=== PATIENT | male | born 1970 | race Caucasian/White ===

== ENCOUNTER 2019-01-15 21:36 | Inpatient (IN) | payer BC ==
[~2019-01-15] VITALS: Ht 177.8 cm; Wt 131.5 kg
[2019-01-15 21:42] VITALS: BP 171/102
[2019-01-15] MEDS ORDERED: BLOOD PRESSURE MED (21:45)
[2019-01-15] MEDS ORDERED: HYDROCHLOROTH12.5 M1 PO (21:47)
[2019-01-15] MEDS ORDERED: LISINOPRIL10 MG PO (21:47)
[2019-01-15 22:08] LABS: ABSOLUTE BASOPHILS 0.1 thou/uL (0.0-0.2); ABSOLUTE EOSINOPHILS 0.1 thou/uL (0.0-0.7); ABSOLUTE LYMPHOCYTES 1.7 thou/uL (0.8-5.3); ABSOLUTE MONOCYTES 0.6 thou/uL (0.0-1.2); ABSOLUTE NEUTROPHILS 4.5 thou/uL (1.6-8.1); BASOPHILS 1.9 %; EOSINOPHILS 1.1 %; HEMATOCRIT 43.3 % (42.0-52.0); HEMOGLOBIN 14.9 gm/dL (14.0-18.0); LYMPHOCYTES 24.5 %; MCH 31.1 pg (26.0-34.0); MCHC 34.4 g/dL (28.0-37.0); MCV 90.7 fL (80.0-100.0); MONOCYTES 8.4 %; MPV 7.1 fl. (7.2-11.1); NUCLEATED RBCS 0 /100WBC; PLATELET COUNT* 279 thou/uL (150-400); POLYS 64.1 %; RBC 4.78 mil/uL (4.50-6.00); RDW-CV 13.6 % (10.5-14.5); WBC 7.1 thou/uL (4.0-11.0)
[2019-01-15 22:16] LABS: ANION GAP 9 mmol/L (7-16); BUN 14 mg/dL (7-18); CALCIUM 8.7 mg/dL (8.5-10.1); CHLORIDE 106 mmol/L (98-107); CO2 28 mmol/L (21-32); GLUCOSE 113 mg/dL (70-99); POTASSIUM 3.9 mmol/L (3.5-5.1); SODIUM 143 mmol/L (136-145)
[2019-01-15 22:20] LABS: APTT 28.9 Seconds (25.0-31.3)
[2019-01-15 22:31] LABS: ALBUMIN 3.5 g/dL (3.4-5.0); ALKALINE PHOSPHATASE 71 U/L (46-116); CK-MB MASS 1.3 ng/mL (<0.5-3.6); LIPASE 102 U/L (73-393); MAGNESIUM 2.1 mg/dL (1.8-2.4); NT-PRO BRAIN NAT PEPTIDE 24 pg/mL (<300); SGOT 27 U/L (15-37); SGPT 84 U/L (30-65); TOTAL BILIRUBIN 0.3 mg/dL (<0.1-1.0); TOTAL PROTEIN 7.4 g/dL (6.4-8.2); TROPONIN-I LEVEL <0.06 ng/mL (<0.06)
[2019-01-16] VITALS (7 sets, daily range): BP systolic 125–139; BP diastolic 68–88
--- NOTE | 2019-01-16 07:18 | NUR ---
PT TO FLOOR APPOX 0030 ASSESSMENT COMPLETE, NEEDS MET. SEE MAR. SEE CHARTING. HOURLY ROUNDING FOR SAFETY.
--- NOTE | 2019-01-16 09:00 | NUR ---
INITAL ASSESSMENT COMPLETED CHARTED. TRACING SR ON MONITOR. VSS. PT YENY PAIN, CP, SOA, N/V/D. PT IS CURRENTLY NPO. NO NEW COMCERNS AT THIS TIME. HOURLY ROUNDING IN PLACE. CLWR.
--- NOTE | 2019-01-16 10:59 | NUR ---
Pt is A&O. Resides at home with his . Active and independent. No DME. No hx of HH or SNF. Goal is home at in. Following.
--- NOTE | 2019-01-16 11:43 | EKG ---
[place] [address] ELECTROCARDIOGRAM REPORT Name: DEMARCUS VARELA Room: [address] ADM IN .R.#: [id number] Admission: 01/15/19 Attend Phys: Zahraa Ellis MD Discharge: Date of : 68 Report #: [id number] THIS REPORT FOR: //name// [facility] ED Test Date: 2019-01-15 Test Time: 21:39:53 Pat Name: DEMARCUS VARELA Department: Room: [facility] Gender: M Harness Inspector: : 1970 Requested By: Dawood Rush Order Number: [id number] MD: John Avila Measurements Intervals [place] Rate: 85 P: 46 [place]: 146 QRS: 79 QRSD: 109 T: 60 QT: 369 QTc: 439 Interpretive Statements Sinus rhythm No previous ECG available for comparison Electronically Signed On 01-16-2019 11:43:00 CDT by John Avila [email or web address] <ELECTRONICALLY SIGNED> By: John vAila MD, [facility] 01/16/19 1143 2139 2139 John Avila MD, FACC /EPI
--- NOTE | 2019-01-16 19:24 | EXE ---
[place] [address] STRESS ECHOCARDIOGRAM Name: DEMARCUS VARELA Room: [address] IN [facility]#: [id number] Admission: 01/15/19 Attend Phys: Zahraa Ellis, Discharge: Date of : 68 Date of Service: 01/16/19 1924 Report #: [id number] THIS REPORT FOR: //name// APPROVED REPORT Study performed: 01/16/2019 16:25:50 Exam: Stress Echocardiogram Indication: Chest pain Patient Location: In-Patient Stress Nurse: Sandi Mcintyre RN Room #: [facility] Supervising Physician: John Avila MD Status: routine Ht: 5 ft 10 in HR: 75 bpm BP: 134/85 mmHg Rhythm: NSR Medical History Allergies: No known drug allergies Cardiac Risk Factors: Smoking, FHX of CAD, HTN Procedure The patient underwent an Exercise Stress Test using the Anatoliy Protocol. Blood pressure, heart rate, and EKG were monitored. An Echocardiogram was performed by roof service technician in four stages in quad fashion. At peak stress, four selected images were obtained and placed side by side with resting images for comparison. Echo Enhancing Agent Indication: Endocardial border delineation Agent(s) / Amount(s) Used: Optison 8 cc Stress Test Details Stress Test: Exercise stress testing was performed using a Anatoliy protocol. HR Resting HR: 75 bpm Max Heart Rate (APMHR): 171 bpm Max HR Achieved: 162 bpm Target HR (85% APMHR): 145 bpm % of APMHR: 94 Recovery HR: 89 bpm HR response to stress: Normal [place] [address] STRESS ECHOCARDIOGRAM Name: DEMARCUS VARELA Room: [address]#: [id number] Admission: 01/15/19 Attend Phys: Zahraa Ellis, Discharge: Date of : 68 Date of Service: 01/16/19 1924 Report #: [id number] Resting BP: 134/85 mmHg Max BP: 242/111 mmHg Recovery BP: 155/92 mmHg BP response to stress: Abnormal hypertensive response to stress. ECG Resting ECG: Sinus Rhythm Stress ECG: Sinus Tachycardia ST Change: Normal Maximum ST Deviation: 0 mm Arrhythmia: None Recovery ECG: Sinus Rhythm Recovery ST Change: Normal Recovery ST Deviation: 0 mm Recovery Arrhythmia: None Clinical Reason for Termination: Maximal effort Exercise duration: 6 min 50 sec Highest Stage Achieved: Stage 3: 3.4 mph at 14% grade. Exercise capacity: 8.33 METs Pre-Stress Echo The resting Echocardiogram showed normal left ventricular contractility with an estimated Ejection Fraction of about 55-60%. Post-Stress Echo The stress Echocardiogram showed normal left ventricular contractility with an estimated Ejection Fraction of about 65-70%. Conclusion Clinical Response: Non-ischemic Exercise Capacity: Average Stress ECG Response: Non-ischemic Stress Echo Images: Non-ischemic low risk stress echo for predicting future cardiac events Other Information Technically limited study [place] [address] STRESS ECHOCARDIOGRAM Name: DEMARCUS VARELA Room: [address]#: [id number] Admission: 01/15/19 Attend Phys: Zahraa Ellis, Discharge: Date of : 68 Date of Service: 01/16/191923 Report #: [id number] <Conclusion> low risk stress echo for predicting future cardiac events <ELECTRONICALLY SIGNED> By: John Avila MD, FACC 01/16/191923 23 23 John Avila MD, FACC /INF
--- NOTE | 2019-01-16 19:42 | NUR ---
PATIENT UNDERWENT STRESS ECHO, RESULTS CAME NEGATIVE. DR ANDRADE OKAY TO DISCHARGE THE PATIENT. VSS.
--- NOTE | 2019-01-16 22:53 | NUR ---
CARDIOLOGY CAME TO FLOOR AT 1930 AND SAID IT WAS OK TO DISCHARGE HOME RELATED TO ECHO RESULTS. PHYSICIAN NOTIFIED DISCHARGE ORDERS RECIEVED AND PAPERWORK COMPLETED BY NURSING. DISCHARGE ORDERS WENT OVER [facility] PT AND ALL QUESTIONS ANSWERED AT THIS TIME. ALL BELONGINGS GATHERED AND GIVEN TO PT. PT ESCORTED BY NURSING TO PERSONAL VEHICLE AT 2119.
--- NOTE | 2019-01-18 16:40 | CON ---
[facility] [address] [place] [address] CONSULTATION Name: DEMARCUS VARELA Room: [address] IN .R.#: [id number] Admission: 01/15/19 Attend Phys: Zahraa Ellis MD Discharge: 01/16/19 Date of : 68 Report #: [id number] THIS REPORT FOR: //name// CC: Rafita Deleon DO FAM physician/PCP Zahraa Ellis CARDIOLOGY CONSULTATION PRIMARY CARE PHYSICIAN: Rafita Deleon DO. HISTORY OF PRESENT ILLNESS: The patient is a 48-year-old white male who I was asked to see in the hospital today after he complained of chest pain. The patient has no previous history of heart disease. He has had no previous cardiac evaluation. He was doing well until he was at work 2 days ago, when he felt a discomfort in his chest. There was no radiation of the pain. He did feel somewhat diaphoretic, but denied any shortness of breath. That lasted for about 3 hours and resolved. He also had an episode yesterday; he felt some soreness in his chest that lasted for about 2 hours. He went out to dinner last night. After dinner, he drove himself to the Emergency Room and was admitted. He denied any associated cough, fever or leg pain. He has had no bleeding. He denied any trauma to his chest. He denies exertional dyspnea, palpitations or syncope. PAST MEDICAL HISTORY: He has had a hip surgery, LASIK therapy on his eyes. A week ago, he was told he had high blood pressure and started on lisinopril. He has no history of diabetes or hyperlipidemia. ALLERGIES: He has no known drug allergies. FAMILY HISTORY: Negative for heart disease. SOCIAL HISTORY: He is . He and his live in [place]. He works for the railroad. No smoking. Has occasional alcohol. REVIEW OF SYSTEMS: He has had no history of stroke, asthma, peptic ulcer disease, liver disease, kidney disease, cancer, psychiatric illness or chronic skin condition. PHYSICAL EXAMINATION: GENERAL: Revealed a middle-aged male, lying in bed. He appeared in no distress. VITAL SIGNS: He had a blood pressure of 130/80, pulse 70. He was afebrile. HEENT: He was anicteric. Conjunctivae were pink. Mucous membranes moist. NECK: Neck veins did not appear distended. No carotid bruits. Neck was supple. CHEST: [place] [address] CONSULTATION Name: NICHOLEDEMARCUS TEIXEIRA Alee Room: [address]#: [id number] Admission: 01/15/19 Attend Phys: Zahraa Ellis MD Discharge: 01/16/19 Date of : 68 Report #: [id number] CARDIAC EXAMINATION: Regular rate and rhythm. No murmur or rub. ABDOMEN: Soft. EXTREMITIES: Had no edema. Posterior pulse 2+ bilaterally. SKIN: Warm, dry. NEUROLOGICAL EXAMINATION: Nonfocal. LYMPH EXAMINATION: No adenopathy. MUSCULOSKELETAL EXAMINATION: No joint effusion. DIAGNOSTIC DATA: His ECG on admission last night showed a normal sinus rhythm. There were nonspecific ST-segment changes noted. His workup in the Emergency Room, he had a portable chest x-ray yesterday that showed some atelectasis, otherwise clear lung nicole. LABORATORY DATA: Sodium 143, creatinine 1.0 and glucose 113. Liver function studies were normal. Troponin 0.06. BNP 24. White blood cell count 7.1 and hemoglobin 14.9. IMPRESSION AND RECOMMENDATIONS: 1. Chest pain. Atypical for angina. Minimal risk factors. Because of his abnormal ECG, recommend a stress echocardiogram. 2. Hypertension. Recently started on LUISA inhibitor. 3. Tobacco abuse. <ELECTRONICALLY SIGNED> By: John Avila MD, FACC 01/18/19 1640 1259 2334Dtami Avila MD, FACC /nt
== END 2019-01-16 22:03 | disposition home or self-care (01) | DRG 311 ==
LOC: M.ERS 21:36 → M.2W 23:15 → M.TBA-ER 23:15 → M.2W 01-16 00:45
PROVIDERS: Family Medicine; ADMIT Internal Medicine
DX: I20.9 Angina pectoris, unspecified (principal); Z68.41 Body mass index [BMI] 40.0-44.9, adult; I10 Essential (primary) hypertension; F17.210 Nicotine dependence, cigarettes, uncomplicated; E66.01 Morbid (severe) obesity due to excess calories

== ENCOUNTER 2020-12-17 15:43 | Observation (INO) | payer BC ==
[~2020-12-17] VITALS: Ht 177.8 cm; Wt 122.8 kg
[~2020-12-17 15:43] MED LIST: BLOOD PRESSURE MED; HYDROCHLOROTH12.5 M1 PO; LISINOPRIL10 MG PO
[2020-12-17 15:50] VITALS: BP 207/112
[2020-12-17] MEDS ORDERED: WELLBUTRIN 75 M75 M1 PO (16:06)
[2020-12-17 16:17] LABS: ABSOLUTE BASOPHILS 0.1 thou/uL (0.0-0.2); ABSOLUTE EOSINOPHILS 0.2 thou/uL (0.0-0.7); ABSOLUTE LYMPHOCYTES 1.5 thou/uL (0.8-5.3); ABSOLUTE MONOCYTES 1.1 thou/uL (0.0-1.2); ABSOLUTE NEUTROPHILS 8.9 thou/uL (1.6-8.1); BASOPHILS 0.5 %; EOSINOPHILS 1.4 %; HEMATOCRIT 46.4 % (42.0-52.0); HEMOGLOBIN 15.8 gm/dL (14.0-18.0); LYMPHOCYTES 12.6 %; MCH 30.9 pg (26.0-34.0); MCHC 34.1 g/dL (28.0-37.0); MCV 90.6 fL (80.0-100.0); MONOCYTES 9.4 %; MPV 7.2 fl. (7.2-11.1); NUCLEATED RBCS 0 /100WBC; PLATELET COUNT* 303 thou/uL (150-400); POLYS 76.1 %; RBC 5.12 mil/uL (4.50-6.00); RDW-CV 13.8 % (10.5-14.5); WBC 11.7 thou/uL (4.0-11.0)
[2020-12-17 16:29] LABS: APTT 26.1 Seconds (25.0-31.3); INR 0.9; PROTIME 9.8 Seconds (9.20-11.50)
[2020-12-17 16:32] LABS: CALCIUM 8.5 mg/dL (8.5-10.1); CREATININE 0.9 mg/dL (0.6-1.3)
[2020-12-17 16:40] LABS: ALBUMIN 3.6 g/dL (3.4-5.0); MAGNESIUM 2.4 mg/dL (1.8-2.4); TOTAL BILIRUBIN 0.5 mg/dL (<0.1-1.0); TOTAL PROTEIN 7.9 g/dL (6.4-8.2)
[2020-12-17 19:57] VITALS: BP 146/97
[2020-12-17 21:00] VITALS: BP 158/93
[2020-12-18] VITALS: BP 156/94
[2020-12-18 04:00] VITALS: BP 141/88; BP 184/100
[2020-12-18 06:16] LABS: HEMATOCRIT 43.9 % (42.0-52.0); HEMOGLOBIN 15.1 gm/dL (14.0-18.0); MCH 31.2 pg (26.0-34.0); MCHC 34.5 g/dL (28.0-37.0); MCV 90.4 fL (80.0-100.0); MPV 7.6 fl. (7.2-11.1); RBC 4.86 mil/uL (4.50-6.00); RDW-CV 13.3 % (10.5-14.5); WBC 9.9 thou/uL (4.0-11.0)
[2020-12-18 06:24] LABS: CALCIUM 8.9 mg/dL (8.5-10.1); CREATININE 0.8 mg/dL (0.6-1.3); POTASSIUM 3.8 mmol/L (3.5-5.1)
[2020-12-18 08:34] VITALS: BP 166/93
--- NOTE | 2020-12-18 11:07 | EKG ---
[place] [address] ELECTROCARDIOGRAM REPORT Name: DEMARCUS VARELA Room: [address] M.R.#: [id number] Admission: 12/17/20 Attend Phys: Kentrell Packer Discharge: Date of : 68 Date of Service: 12/17/20 1548 Report #: [id number] THIS REPORT FOR: //name// [facility] ED Test Date: 2020-12-17 Test Time: 15:48:27 Pat Name: DEMARCUS VARELA Department: Room: [facility] Gender: M Classification And Treatment Director: JORDEN : 1970 Requested By: Dawood Rush Order Number: [id number] MD: John Avila Measurements Intervals [place] Rate: 96 P: 53 [place]: 138 QRS: 72 QRSD: 96 T: 53 QT: 350 QTc: 443 Interpretive Statements Sinus rhythm Baseline wander in lead(s) V3 Compared to ECG 01/15/2019 21:39:53 No significant changes Electronically Signed On 12-18-2020 11:07:45 CDT by John Avila [email or web address] <ELECTRONICALLY SIGNED> By: John Avila MD, FAC 12/18/20 1107 1548 1548 John Avila MD, [facility] /EPI
[2020-12-18 12:08] VITALS: BP 130/88
[2020-12-18 16:34] VITALS: BP 153/93
[2020-12-18 20:00] VITALS: BP 151/86
[2020-12-19] VITALS: BP 155/94
[2020-12-19 04:00] VITALS: BP 150/87
[2020-12-19 04:17] LABS: HEMOGLOBIN 14.7 gm/dL (14.0-18.0); MCH 31.1 pg (26.0-34.0); MCHC 34.2 g/dL (28.0-37.0); MCV 90.8 fL (80.0-100.0); MPV 7.2 fl. (7.2-11.1); RBC 4.74 mil/uL (4.50-6.00); RDW-CV 13.6 % (10.5-14.5); WBC 8.2 thou/uL (4.0-11.0)
[2020-12-19 04:36] LABS: CALCIUM 8.9 mg/dL (8.5-10.1); CREATININE 0.8 mg/dL (0.6-1.3)
[2020-12-19 07:53] VITALS: BP 141/90
[2020-12-19] MEDS ORDERED: HYDROCODON-ACE1 EAC7 PO (10:48)
[2020-12-19 11:40] VITALS: BP 123/75
[2020-12-19] MEDS ORDERED: XARELTO2.5 MG PO (13:16)
--- NOTE | 2020-12-19 13:23 | 2DMMODE ---
[place] [address] 2 D/M-MODE ECHOCARDIOGRAM Name: NICHOLEDEMARCUS D Room: [address] Kari Yuen#: [id number] Admission: 12/17/20 Attend Phys: Kentrell Packer Discharge: Date of : 68 Date of Service: 12/19/20 1322 Report #: [id number] THIS REPORT FOR: cc: FAM - No family physician/PCP FAM - No family physician/PCP Anupam Crowder MD [facility] ~ APPROVED REPORT Study performed: 12/19/2020 11:21:44 EXAM: Comprehensive 2D, Doppler, and color-flow Echocardiogram Patient Location: In-Patient Room #: [facility] Status: routine BSA: 2.37 HR: 74 bpm BP: 141/90 mmHg Rhythm: NSR Other Information Study Quality: Good Indications rule out thrombus 2D Dimensions IVSd: 12.79 (7-11mm) LVOT Diam: 19.34 (18-24mm) LVDd: 42.27 mm PWd: 11.95 (7-11mm) Ascending Ao: 31.81 (22-36mm) LVDs: 18.89 (25-40mm) Aortic Root: 30.81 mm Volumes Left Atrial Volume (Systole) LA ESV Index: 23.70 mL/m2 Aortic Valve AoV Peak Francis.: 1.31 m/s AO Peak Gr.: 6.84 mmHg LVOT Max P.61 mmHg AO Mean Gr.: 4.09 mmHg LVOT Mean P.12 mmHg LVOT Max V: 1.29 m/s AO V2 VTI: 28.13 cm LVOT Mean V: 0.80 m/s JACOB (VTI): 2.67 cm2 LVOT V1 VTI: 25.55 [place] [address] 2 D/M-MODE ECHOCARDIOGRAM Name: DEMARCUS VARELA Room: [address]#: [id number] Admission: 12/17/20 Attend Phys: Kentrell Packer Discharge: Date of : 68 Date of Service: 12/19/20 1322 Report #: [id number] Mitral Valve E/A Ratio: 1.04 MV Decel. Time: 277.64 ms MV E Max Francis.: 0.76 m/s MV PHT: 80.52 ms MVA (PHT): 2.73 cm2 TDI E/Lateral E': 6.33 E/Medial E': 8.44 Medial E' Francis.: 0.09 m/s Lateral E' Francis.: 0.12 m/s Pulmonary Valve PV Peak Francis.: 1.13 m/s PV Peak Gr.: 5.14 mmHg Left Ventricle The left ventricle is normal size. There is normal LV segmental wall motion. Mild to moderate concentric left ventricular hypertrophy. Left ventricular systolic function is normal. LVEF is 60-65%. Transmitral Doppler flow pattern suggests impaired LV relaxation. Right Ventricle The right ventricle is normal size. The right ventricular systolic function is normal. Atria The left atrium size is normal. The right atrium size is normal. Aortic Valve The aortic valve is normal in structure. No aortic regurgitation is present. There is no aortic valvular stenosis. Mitral Valve The mitral valve is normal in structure. There is no mitral valve regurgitation noted. No evidence of mitral valve stenosis. Tricuspid Valve The tricuspid valve is normal in structure. Trace tricuspid regurgitation. No pulmonary hypertension. Pulmonic Valve The pulmonary valve is normal in structure. There is no pulmonic [place] [address] 2 D/M-MODE ECHOCARDIOGRAM Name: NICHOLEDEMARCUS D [address]#: [id number] Admission: 12/17/20 Attend Phys: Kentrell Packer Discharge: Date of : 68 Date of Service: 12/19/20 1322 Report #: [id number] Great Vessels The aortic root is normal in size. IVC is normal in size and collapses >50% with inspiration. Pericardium There is no pericardial effusion. <Conclusion> The left ventricle is normal size. Mild to moderate concentric left ventricular hypertrophy. Left ventricular systolic function is normal. LVEF is 60-65%. Transmitral Doppler flow pattern suggests impaired LV relaxation. There is normal LV segmental wall motion. Trace tricuspid regurgitation. No pulmonary hypertension. IVC is normal in size and collapses >50% with inspiration. <ELECTRONICALLY SIGNED> By: Anupam Crowder MD, FACC 12/19/20 132 132 132 Anupam Crowder MD, FACC /INF
[2020-12-19 13:32] VITALS: BP 123/75
== END 2020-12-19 14:30 | disposition home or self-care (01) ==
LOC: M.ERS 15:43 → M.TBA-ER 18:38 → M.2W 18:38
PROVIDERS: Family Medicine; Internal Medicine; Internal Medicine Hematology & Oncology; ADMIT Internal Medicine; ATTEND Internal Medicine
DX: R10.9 Unspecified abdominal pain (principal); Z20.822 Contact with and (suspected) exposure to COVID-19; K76.0 Fatty (change of) liver, not elsewhere classified; D73.5 Infarction of spleen; K82.0 Obstruction of gallbladder; M25.512 Pain in left shoulder; F41.9 Anxiety disorder, unspecified; F32.9 Major depressive disorder, single episode, unspecified; E66.9 Obesity, unspecified; Z68.38 Body mass index [BMI] 38.0-38.9, adult; I10 Essential (primary) hypertension; F17.200 Nicotine dependence, unspecified, uncomplicated; Z79.899 Other long term (current) drug therapy